=== PATIENT | male | born 1950 | race Caucasian/White ===

== ENCOUNTER 2020-11-27 10:42 | Outpatient (CLI) | payer MEDICARE, SELFPAY ==
[2020-11-27 11:48] LABS: Alanine Aminotransferase 38 U/L (4-50); Albumin Level 4.3 g/dL (3.5-5.1); Alkaline Phosphatase 59 U/L (38-126); Anion Gap 8 mmol/L (8-16); Aspartate Amino Transferase 27 U/L (17-59); Bilirubin,Total 0.8 mg/dL (0.2-1.3); Blood Urea Nitrogen 25 mg/dL (9-20); Calcium 9.7 mg/dL (8.4-10.2); Carbon Dioxide 24 mmol/L (22-30); Chloride 105 mmol/L (98-107); Estimated Glomerular Filt Rate > 60; Glucose 231 mg/dL (75-110); Potassium 4.1 mmol/L (3.4-5.0); Sodium 137 mmol/L (137-145)
[2020-11-27 12:16] LABS: Hemoglobin A1C 9.7 % (<5.7)
[2020-11-27 12:28] LABS: Free T4 Free Thyroxine 1.09 ng/mL (0.78-2.19)
[2020-11-27 12:31] LABS: Microalbumin Urine Random 63.1 mg/L (0-16.7)
[2020-11-27 13:17] LABS: Creatinine Urine 406.7 mg/dL; MALB Creatinine Ratio 15.5 mg/g (0-30)
== END 2020-11-27 10:43 | disposition home or self-care (01) ==
LOC: ANHLAB 10:52
PROVIDERS: PCP Internal Medicine; Visit Provider Internal Medicine Endocrinology, Diabetes & Metabolism
DX: E11.65 Type 2 diabetes mellitus with hyperglycemia (principal); E03.9 Hypothyroidism, unspecified
CPT/HCPCS: 36415; 80053; 82043; 83036; 84439; 84443

== ENCOUNTER 2021-09-03 10:11 | Outpatient (CLI) | payer MEDICARE, SELFPAY ==
[2021-09-03 11:44] LABS: Alanine Aminotransferase 30 U/L (4-50); Albumin Level 4.7 g/dL (3.5-5.1); Alkaline Phosphatase 86 U/L (38-126); Anion Gap 10 mmol/L (8-16); Aspartate Amino Transferase 27 U/L (17-59); Bilirubin,Total 1.2 mg/dL (0.2-1.3); Blood Urea Nitrogen 19 mg/dL (9-20); Calcium 9.8 mg/dL (8.4-10.2); Carbon Dioxide 25 mmol/L (22-30); Chloride 99 mmol/L (98-107); Cholesterol 152 mg/dL (0-200); Estimated Glomerular Filt Rate 59; Glucose 263 mg/dL (65-110); HDL Direct 38 mg/dL; Potassium 4.8 mmol/L (3.4-5.0); Sodium 134 mmol/L (137-145); Triglycerides 174 mg/dL (<150)
[2021-09-03 11:48] LABS: LDL Cholesterol Direct 85 mg/dL; NT Pro B Type Natriuretic Pept 231 pg/mL (5-100)
[2021-09-03 11:53] LABS: Free T4 Free Thyroxine 1.27 ng/mL (0.78-2.19)
[2021-09-03 11:54] LABS: Hemoglobin A1C 8.4 % (<5.7)
[2021-09-03 12:11] LABS: Microalbumin Urine Random 136.1 mg/L (0-16.7)
[2021-09-03 17:52] LABS: Creatinine Urine 396.2 mg/dL; MALB Creatinine Ratio 34.4 mg/g (0-30)
[2021-09-06 07:26] LABS: Triiodothyronine T3 Free 2.7 pg/mL (2.3-4.2)
== END 2021-09-03 10:12 | disposition home or self-care (01) ==
PROVIDERS: PCP Internal Medicine; Referring Provider Internal Medicine Cardiovascular Disease; Visit Provider Internal Medicine Endocrinology, Diabetes & Metabolism
DX: E03.9 Hypothyroidism, unspecified (principal); E11.65 Type 2 diabetes mellitus with hyperglycemia; R53.83 Other fatigue; I48.91 Unspecified atrial fibrillation; R06.02 Shortness of breath; G47.33 Obstructive sleep apnea (adult) (pediatric); E66.01 Morbid (severe) obesity due to excess calories; E78.5 Hyperlipidemia, unspecified; I25.10 Atherosclerotic heart disease of native coronary artery without angina pectoris; I10 Essential (primary) hypertension
CPT/HCPCS: 36415; 80053; 80061; 82043; 83036; 83880; 84439; 84443; 84481